=== PATIENT | female | born 1975 | race American Indian/Alaskan Native ===

== ENCOUNTER 2016-06-01 07:48 | Outpatient (CLI) | payer BC ==
--- NOTE | 2016-06-01 08:43 | Mammography Report ---
BILATERAL MAMMOGRAM: FINDINGS: Baseline mammogram. The breasts are almost entirely fat (<25% glandular). No mass, distortion, suspicious calcification, or skin change is seen. CAD was utilized. IMPRESSION: Negative mammogram. There is no mammographic evidence of malignancy. RECOMMENDATION: Follow-up per ACS guidelines. BI-RADS CATEGORY: 1 = Negative ACR BI-RADS MAMMOGRAPHIC CODES: 0 = Needs additional imaging evaluation; 1 = Negative; 2 = Benign; 3 = Probably benign; 4 = Suspicious; 5 = Malignant; 6 = Known biopsy-proven malignancy COMMENT: 1. Dense breast tissue, i.e., adenosis, fibrocystic changes, etc., may obscure an underlying neoplasm. 2. Approximately 10% of cancers are not detected with mammography. 3. A negative mammography report should not delay biopsy if a clinically suspicious mass is present. COMMENT: Patient follow-up letters are generated in [employer].
== END 2016-06-01 07:49 | disposition home or self-care (01) ==
LOC: MAMMO 07:48
PROVIDERS: ATTEND Obstetrics & Gynecology
DX: Z12.31 Encounter for screening mammogram for malignant neoplasm of breast (principal)
CPT/HCPCS: 77067; G0202

== ENCOUNTER 2016-07-20 23:04 | Emergency (ER) | payer BC ==
--- NOTE | 2016-07-21 00:50 | XRay Report ---
FINAL REPORT EXAM: XR HAND 3 RT HISTORY: lac 1st finger Rt hand TECHNIQUE: Right hand three views 3 images PRIORS: None. FINDINGS: Bone mineralization appears within normal limits. No acute fracture or subluxation is identified. There is flexion of the distal interphalangeal joint of the index finger in all 3 projections. No radiodense foreign body is identified. IMPRESSION: 1. No acute fracture is identified. 2. No radiodense foreign body is identified. 3. There is flexion of the distal interphalangeal joint of the index finger noted. Possibility of tendon injury is not excluded. Clinical correlation is necessary.
[2016-07-21] MEDS ORDERED: TYLENOL PO ONE (04:34)
[2016-07-21] MEDS ORDERED: TYLENOL ONE (04:34)
[2016-07-21] MEDS ORDERED: BOOSTRIX IM ONE (05:44)
[2016-07-21] MEDS ORDERED: ZOFRAN ODT PO ONE (05:44)
[2016-07-21] MEDS ORDERED: NACL 0.9% IR ONE (06:44)
[2016-07-21] MEDS ORDERED: TRIPLE ANTIBIOTIC TP ONE (06:44)
[2016-07-21] MEDS ORDERED: XYLOCAINE 1% 20 mL INFILTRATI ONE (06:44)
--- NOTE | 2016-07-21 06:55 | Emergency Department Report ---
ED Extremity Problem HPI - General Chief complaint: Wound/Laceration Stated complaint: RT HAND LACERATION Time Seen by Provider: 07/21/16 04:34 Source: patient Mode of arrival: Ambulatory Limitations: No Limitations - History of Present Illness Initial comments: PT states she cut her finger on a metal can last night when making dinner, injury occurred at 2230. PT states she can not move the tip of her finger. PT states her TD vaccine is not utd. PT states that she is now having 10/10 pain in the finger. MD Complaint: extremity pain -: Sudden, hour(s) Location: right, upper extremity (index finger ) History of Same: No Severity scale (0 -10): 10 Quality: constant Consistency: constant Improves with: nothing Worsens with: palpation Associated Symptoms: denies other symptoms - Related Data Previous Rx's Medication Instructions Recorded Last Taken Type Acetaminophen/Codeine [Tylenol #3] 1 tab PO Q6H PRN #12 tab 07/21/16 Unknown Rx Allergies Allergy/AdvReac Type Severity Reaction Status Date / Time ibuprofen [From Motrin] AdvReac Unknown Verified 03/11/15 21:56 Iodinated Contrast Media - AdvReac Unknown Verified 03/11/15 21:56 IV Dye ED Review of Systems ROS: Stated complaint: RT HAND LACERATION Other details as noted in HPI Comment: All other systems reviewed and negative Constitutional: denies: fever Cardiovascular: denies: chest pain Gastrointestinal: denies: abdominal pain, nausea, vomiting Musculoskeletal: as per HPI Skin: as per HPI ED Past Medical Hx - Past Medical History Previous Medical History?: Yes Hx Congestive Heart Failure: No Hx Diabetes: No Hx Asthma: No Hx COPD: No Additional medical history: PCOS - Polycystic ovary syndrome - Surgical History Past Surgical History?: No - Social History Smoking Status: Never Smoker Substance Use Type: None - Medications Home Medications: Home Medications Medication Instructions Recorded Confirmed Last Taken Type Acetaminophen/Codeine [Tylenol #3] 1 tab PO Q6H PRN #12 tab 07/21/16 Unknown Rx ED Physical Exam - General Limitations: No Limitations General appearance: alert, in no apparent distress - Head Head exam: Present: atraumatic, normocephalic - Eye Eye exam: Present: normal appearance. Absent: conjunctival injection - ENT ENT exam: Present: normal exam, mucous membranes moist, normal external ear exam - Neck Neck exam: Present: normal inspection, full ROM - Respiratory Respiratory exam: Absent: respiratory distress, accessory muscle use - Cardiovascular Cardiovascular Exam: Present: regular rate, normal rhythm - GI/Abdominal GI/Abdominal exam: Present: soft. Absent: tenderness - Expanded Upper Extremity Exam Right General: Present: laceration. Absent: nail injury (#) Forearm Wrist exam: Present: normal inspection. Absent: full ROM, swelling Hand Wrist exam: Present: tenderness, swelling, laceration, deformity (pt is unable to extend her R index finger at the DIP joint.), other (R post index finger with an irregular flap laceration. laceration is just proximal of the DIP joint ). Absent: full ROM, nail avulsion, subungual hematoma Vascular: Present: normal capillary refill, radial pulse. Absent: vascular compromise - Back Exam Back exam: Present: normal inspection, full ROM - Neurological Exam Neurological exam: Present: alert, oriented X3 - Psychiatric Psychiatric exam: Present: normal affect, normal mood - Skin Skin exam: Present: warm, dry, normal color ED Course Vital Signs 07/20/16 23:23 Temperature 98.7 F Pulse Rate 93 H Respiratory 16 Rate Blood Pressure 142/88 [Right] O2 Sat by Pulse 98 Oximetry - Reevaluation(s) Reevaluation #1: 07/21/16 07:32 PT tolerated wound repair. PT aware that given the presentation and location of this injury, that she likely has tendon injury. PT aware she must follow up with ortho to be evaluated and schedule repair. PT verbalizes understanding. Reevaluation #2: 07/21/16 07:45 PT states she is feeling better. Nursing staff place pt in splint. PT NVI. - Consultations Consultation #1: 07/21/16 06:41 Dr Cramer aware of pt and likely tendon injury. Dr Cramer wants pt to call the office today to schedule an appointment. - Laceration /Wound Repair Right Distal Finger Wound Location: upper extremity (R post index finger, proximal to the DIP joint ) Wound Length (cm): 2 Wound's Depth, Shape: irregular, flap Wound Explored: no foreign body removed Irrigated w/ Saline (ccs): 250 Betadine Prep?: Yes Suture Size/Type: 4:0 Number of Sutures: 5 Sterile Dressing Applied?: Yes - Nerve Block Consent Obtained: verbal consent, emergent situation Time Out Performed: No Local Anesthetic Used: Lidocaine 1% Amount of anesthesia used: 8 Side: right Nerve Blocks: digital Procedure Successful: Yes Complications: none Patient Tolerated Procedure: well, no complications - Pulse Oximetry Interpretation Digit-Finger Initial Pulse Oximetry Readin Actions Taken: none ED Medical Decision Making - Radiology Data Radiology results: report reviewed XR - no fx, possible tendon injury - Differential Diagnosis laceration, tendon injury Critical Care Time: No Critical care attestation.: If time is entered above; I have spent that time in minutes in the direct care of this critically ill patient, excluding procedure time. ED Disposition Clinical Impression: Need for Tdap vaccination, Mallet finger of right finger(s) Laceration of right index finger Qualifiers: Encounter type: initial encounter Damage to nail status: without damage Foreign body presence: without foreign body Qualified Code(s): S61.210A - Laceration without foreign body of right index finger without damage to nail, initial encounter Disposition: TO HOME OR SELFCARE Is pt being admited?: No Does the pt Need Aspirin: No Condition: Stable Instructions: Finger Laceration (ED) Additional Instructions: Call Dr Cramer's office today to schedule follow up No driving or ETOH after Tylenol #3 Prescriptions: Acetaminophen/Codeine [Tylenol #3] 1 tab PO Q6H PRN #12 tab PRN Reason: Pain , Severe (7-10) Referrals: PRIMARY MD KAYLEE [Primary Care Provider] - 3-5 Days GENET CRAMER MD [Staff Physician] - 3-5 Days Forms: Work/School Release Form(ED) Time of Disposition: 07:35
[2016-07-21] MEDS ORDERED: PERCOCET 5/325 PO ONE (07:02)
[2016-07-21 07:53] VITALS: BP 140/81
== END 2016-07-21 07:52 | disposition home or self-care (01) ==
LOC: ED 23:04
DX: S61.210A Laceration without foreign body of right index finger without damage to nail, initial encounter (principal); E28.2 Polycystic ovarian syndrome; Z88.6 Allergy status to analgesic agent; Z91.041 Radiographic dye allergy status; W45.8XXA Other foreign body or object entering through skin, initial encounter; Y93.89 Activity, other specified; Y92.89 Other specified places as the place of occurrence of the external cause; Y99.8 Other external cause status
CPT/HCPCS: 81025; 90471; 90715; A6250; Q0162

== ENCOUNTER 2016-08-15 11:54 | Day surgery (SDC) | payer BC ==
[2016-08-15] MEDS ORDERED: DECADRON ONE (12:00)
[2016-08-15] MEDS ORDERED: ZOFRAN ONE (12:00)
[2016-08-15] MEDS ORDERED: TRANSDERM-SCOP TD NR (12:16)
--- NOTE | 2016-08-15 12:16 | Anesthesia Consultation ---
Anesthesia Consult and Med Hx Date of service: 08/15/16 - Airway Anesthetic Teeth Evaluation: Good, Bridges ROM Head & Neck: Adequate Mental/Hyoid Distance: Adequate Mallampati Class: Class II Intubation Access Assessment: Probably Good - Pulmonary Exam CTA: Yes - Cardiac Exam Cardiac Exam: RRR - Pre-Operative Health Status ASA Pre-Surgery Classification: ASA3 Proposed Anesthetic Plan: General - Pulmonary Hx Smoking: Yes (QUIT IN 2001) Hx Asthma: No COPD: No Hx Pneumonia: No - Cardiovascular System Hx Hypertension: Yes (ON METOPROLOL) - Central Nervous System Hx Seizures: No CVA: No - Endocrine Hx End Stage Renal Disease: No Hx Liver Disease: No Hx Thyroid Disease: Yes Hx Hypothyroidism: Yes - Other Systems Hx Alcohol Use: Yes (BEER DAILY) Hx Cancer: Yes (UTERIN 1996) Hx Obesity: Yes (BMI > 40) - Additional Comments Anesthesia Medical History Comments: "DIFFICULT TO WAKE UP" PONV X 1
--- NOTE | 2016-08-15 12:16 | Anesthesia Day of Surgery ---
Anesthesia Day of Surgery - Day of Surgery Patient Examined: Yes Patient H&P Reviewed: Yes Patient is NPO: Yes Beta Blockers: Yes
[2016-08-15] MEDS ORDERED: DILAUDID IV PRN (12:17)
[2016-08-15] MEDS ORDERED: ZOFRAN IV PRN (12:17)
[2016-08-15] MEDS ORDERED: PERCOCET 5/325 PO PRN (12:17)
[2016-08-15] MEDS ORDERED: PEPCID PO NR (13:00)
[2016-08-15] MEDS ORDERED: NACL 0.9% 1000 ML 1,000 ML IV SCH (13:00)
[2016-08-15] MEDS ORDERED: VERSED IV NR (13:00)
--- NOTE | 2016-08-15 13:32 | Anesthesia Day of Surgery ---
Anesthesia Day of Surgery - Day of Surgery Patient Examined: Yes Patient H&P Reviewed: Yes Patient is NPO: Yes
--- NOTE | 2016-08-15 13:32 | Anesthesia Consultation ---
Anesthesia Consult and Med Hx Date of service: 08/15/16 - Airway Anesthetic Teeth Evaluation: Good ROM Head & Neck: Adequate Mental/Hyoid Distance: Adequate Mallampati Class: Class III Intubation Access Assessment: Probably Good (small mouth opening) - Pulmonary Exam CTA: Yes - Cardiac Exam Cardiac Exam: RRR - Pre-Operative Health Status ASA Pre-Surgery Classification: ASA3 Proposed Anesthetic Plan: General - Pulmonary Hx Smoking: No Hx Asthma: No COPD: No Hx Pneumonia: No - Cardiovascular System Hx Hypertension: No Hx Heart Attack/AMI: No - Central Nervous System Hx Seizures: No CVA: No - Endocrine Hx End Stage Renal Disease: No Hx Liver Disease: No Hx Non-Insulin Dependent Diabetes: No - Other Systems Hx Obesity: Yes (BMI > 40) - Additional Comments Anesthesia Medical History Comments: NAC
[2016-08-15] MEDS ORDERED: ANCEF/STERILE WATER 2 GM/20 ML IV NR (14:00)
[2016-08-15 14:11] LABS: Hematocrit 41.2 % (30.3-42.9); Hemoglobin 13.3 gm/dl (10.1-14.3); Mean Corpuscular HGB Conc 32 % (30-34); Mean Corpuscular Hemoglobin 31 pg (28-32); Mean Corpuscular Volume 96 fl (79-97); Platelet Count 244 K/mm3 (140-440); Red Cell Distribution Width 14.6 % (13.2-15.2); White Blood Count 7.6 K/mm3 (4.5-11.0)
[2016-08-15 14:21] LABS: Bilirubin,Urine NEG (Negative); Blood,Urine NEG (Negative); Ketones,Urine NEG (Negative); Leukocyte Esterase,Urine NEG (Negative); Mucus,Urine 2+ /HPF; Nitrite,Urine NEG (Negative); Protein,Urine <15 mg/dL mg/dL (Negative); Urobilinogen,Urine < 2.0 mg/dL (<2.0)
[2016-08-15] MEDS ORDERED: DIPRIVAN 10 MG/ML IV ONE (14:28)
[2016-08-15] MEDS ORDERED: XYLOCAINE MPF 2% ONE (14:28)
[2016-08-15] MEDS ORDERED: SUBLIMAZE ONE (14:28)
[2016-08-15 14:34] LABS: Alanine Aminotransferase 15 units/L (7-56); Albumin 3.6 g/dL (3.9-5); Albumin/Globulin Ratio 1.1 %; Alkaline Phosphatase 125 units/L (35-129); Anion Gap 16 mmol/L; BUN/Creatinine Ratio 12.22; Blood Urea Nitrogen 11 mg/dL (7-17); Calcium 8.8 mg/dL (8.4-10.2); Carbon Dioxide 25 mmol/L (22-30); Chloride 104.5 mmol/L (98-107); Glucose 90 mg/dL (65-100); Sodium 141 mmol/L (137-145); Total Protein 6.8 g/dL (6.3-8.2)
[2016-08-15] MEDS ORDERED: DILAUDID ONE (17:15)
[2016-08-15] MEDS ORDERED: NACL 0.9% 1000 ML 1,000 ML ONE (17:15)
[2016-08-15] MEDS ORDERED: NACL 0.9% IR ONE (17:36)
[2016-08-15] MEDS ORDERED: MARCAINE 0.5% 30 ML INFILTRATI ONE (17:39)
[2016-08-15] MEDS ORDERED: MARCAINE 0.5% INFILTRATI ONE (17:42)
--- NOTE | 2016-08-15 18:28 | Procedure Note ---
Date of procedure: 08/15/16 Pre-op diagnosis: 4 week old laceration right index finger Post-op diagnosis: same Procedure: Procedure - repair of 4-week-old lacerated extensor tendon right second finger Indications - 41-year-old female who sustained a laceration to the dorsal surface of her right index finger as a result of opening a can of tomato's back on 07/20/2013. She presented to our office 1 week ago for follow-up. Procedure The patient was brought to the OR and was placed on the OR table in supine position following and induction and intubation by anesthesia the patient's right upper extremity was prepped and draped in the usual sterile manner arm was exsanguinated followed by simply wrapping with an Esmarch bandage to control bleeding. A bayonet-type incision was made centered over the previous laceration this is taken down through skin subcutaneous patient was noted to have a laceration over the distal interphalangeal joint with early granulation tissue present and no communication to the distal tendon scar tissue was debrided the ends were freed up using a combination of periosteal elevators next the 2 ends were approximated and sewn together with 4-0 nylon due to the thin nature of the distal tendon it was decided to place a K wire across the distal interphalangeal joint to stabilize the joint and prevent flexion in the postop period. We will leave the K wires in for approximately 4 weeks then pull them out in the office and begin active range of motion. The wound was copiously irrigated and closure was done using a standard technique . Postop dressings were applied as well as a finger splint. She tolerated the procedure there were no complications C was sent to postanesthesia recovery in stable condition Anesthesia: GETA Surgeon: GENET PEREZ Estimated blood loss: minimal Pathology: none Condition: stable Disposition: PACU
[2016-08-15 21:10] VITALS: BP 123/84
== END 2016-08-15 20:30 | disposition home or self-care (01) ==
LOC: OR 11:54
PROVIDERS: ATTEND Orthopaedic Surgery
DX: S61.210A Laceration without foreign body of right index finger without damage to nail, initial encounter (principal); I10 Essential (primary) hypertension; E03.9 Hypothyroidism, unspecified; E66.9 Obesity, unspecified; Z68.42 Body mass index [BMI] 45.0-49.9, adult; Z87.891 Personal history of nicotine dependence; Z79.899 Other long term (current) drug therapy; Z72.89 Other problems related to lifestyle; Z85.42 Personal history of malignant neoplasm of other parts of uterus; Z88.8 Allergy status to other drugs, medicaments and biological substances; Z91.041 Radiographic dye allergy status; X58.XXXA Exposure to other specified factors, initial encounter
CPT/HCPCS: 26418; 36415; 80053; 81001; 81025; 85027; J0690; J1100; J1170; J2250; J2405; J2704; J3010; J7030

== ENCOUNTER 2016-12-20 11:00 | Outpatient (CLI) | payer BC | END 2016-12-20 11:01 | disposition home or self-care (01) | LOC: SLR 11:00 | PROVIDERS: ATTEND Specialist | DX: G47.33 Obstructive sleep apnea (adult) (pediatric) (principal) | CPT/HCPCS: 95811 ==